=== PATIENT | female | born 1995 | race Caucasian/White ===

== ENCOUNTER → 2016-11-30 | Outpatient (CLI) | payer OTHER ==
--- NOTE | 2016-11-30 18:54 | DX ---
Right Hand - 3 views Indication: Trauma. Pain. Technique: AP, oblique, and lateral views. Comparison: Right wrist series dated October 24, 2016 Findings: The bones are anatomically aligned. No acute fracture. Joint spaces are well preserved. Impression: Normal. No acute fracture.
== END ==
LOC: FIMAGING 17:19
PROVIDERS: ATTEND Family Medicine
DX: M79.641 Pain in right hand (principal)